=== PATIENT | male | born 2000 | race Caucasian/White ===

== ENCOUNTER 2025-03-18 13:48 | Outpatient (CLI) | payer OTHER, SELFPAY ==
--- NOTE | ~2025-03-18 | MR_ITS ---
EXAMINATION: MR brain/brain stem wo/w con DATE: 03/18/2025 14:38 INDICATION: Other visual disturbances. TECHNIQUE: Magnetic resonance imaging (MRI) of the brain and brainstem was performed without and with 19 mL MultiHance intravenous contrast. COMPARISON: None. FINDINGS: There is no intracranial hemorrhage, acute infarction, or abnormal intracranial mass lesion. The ventricles are normal in size. There is mucosal thickening in the paranasal sinuses. The orbits are normal. The mastoid air cells are normal. IMPRESSION: 1. Normal brain. Reviewed, dictated and finalized at location E. IMPRESSION: 1. Normal brain.
--- OUTSIDE RECORDS SUMMARY | 2025-03-18 13:50 | XMS_ITS | Patient Health Record ---
Author Organization [facility] As [facility] Address [address] [place] [address] Care Team Providers Care Air Hose Coupler Name Role Phone Marisela Gramajo Unavailable [phone] Reason For Referral No Information Medications Medication SIG (Take, Route, Frequency, Duration) Notes Start Date End Date Status Sertraline HCl 50 MG Tablet Oral 12/27/2022 Active Auvelity 45-105 MG Tablet Extended Release Oral *Reorder from [employer] for eRx and Interaction Alerts* 12/27/2022 Active Sertraline HCl 25 MG Tablet Oral 12/27/2022 Active Immunizations Vaccine Route Administration Date Status Comme nts Pfizer Biontech Covid-19 Vac cine 2nd dose Unknown 09/21/2020 Administered Pfizer Biontech Covid-19 Vac cine 2nd dose Unknown 10/12/2020 Administered Social History Social History Additional Details Category Social Info Options Details Migrated Social History Migrated Social History Alcohol Intake: None 09/06/2021,Tobacco Years: Never smoker 09/06/2021 Plan Of Treatment No Information Insurance Providers Payer Name Payer Address Payer Phone Subscriber Number Group Number Insured Name Patient Relationship to Insured Coverage Start Date Coverage End Date [facility] [address] [address] [place] [address] [phone] [id number] BUSHRA BARTON Child - Insured has Financial Responsibility
--- OUTSIDE RECORDS SUMMARY | 2025-03-18 13:51 | XMS_ITS | Data Portability ---
Author Organization [facility], Main Office Address [address] [place] [address] Assessment No assessment recorded. Plan of Treatment Reminders Order Date Submit Date Provider Last Modified By Organization Details Last Modified Time Details Appointments None recorded. Lab vitamin B12 + folate, serum or blood 2024 025 [email or web address] 4 [facility] (Lab), [address] [place], [address], 5 12:39:18 unlisted lab - vit D, [id number] 29 2024 025 [email or web address] 4 [facility] (Lab), [address] [place], [address], 5 12:39:18 magnesium, serum or plasma 2024 025 [email or web address] 4 [facility] (Lab), [address] [place], [address], 5 12:39:18 CBC w/ auto diff 2024 025 [email or web address] 4 [facility] (Lab), [address] [place], [address], 5 12:39:16 CMP, serum or plasma 2024 025 [email or web address] 4 [facility] (Lab), [address] [place], [address], 5 12:39:16 lipid panel, serum 2024 025 [email or web address] [id number] 4 [facility] (Lab), [address] [place], [address], 5 12:39:16 glycohemog lobin, total, blood [address] [place] [id number] 4 [facility] (Lab), [address] [place], [address], 5 12:39:17 T4, free, serum [address] [place] [id number] 4 [facility] (Lab), [address] [place], [address], 5 12:39:17 CK (creatine kinase), total, serum [address] [place] [address] 4 [facility] (Lab), [address] [place], [address], 5 12:39:17 TSH, serum or plasma [address] [place] [address] 4 [facility] (Lab), [address] [place], [address], 5 12:39:17 Referral None recorded. Procedures None recorded. Surgeries None recorded. Imaging None recorded. Medication Orders None recorded. Patient TargetsNo targets recorded. Patient Instructions Encounter Date Encounter Id Patient Instructions Last Modified By Organization Details Last Modified Time 09/09/2024 [id number] he did not want a muscle relaxant , the spasms go away instantly [email or web address] Not available 09/17/2024 17:24:15 Reason for Referral None Reported. Results Created Date Observation Date Name Description Value Unit Range Abnormal Flag Note LastModifiedBy Organization Detail LastModifiedTime Result Notes None recorded. Problems Name Problem SNOMED Code Status Onset Date Resolution Date Notes Provider Name and Address Organization Details Recorded Time Adult health examination Active 2024 DARLENE Davis [address], [place], [address], [facility] [employer] [facility] [employer] [facility] 5 10:59:14 Spasm 90059377 Active 2024 DARLENE Davis [address], [address], [place], [address], [facility] [employer] [facility] [employer] [facility] 5 11:00:13 Hyperlipidemia 15733653 Active 2024 DARLENE Davis [address], [address], [place], [address], [facility] [employer] [facility] 5 13:45:42 Problem Notes None recorded. Medical Equipment None Reported. Medications Name Sig Start Date Stop Date Status Note LastModified by Organization Details LastModified Time ezetimibe 10 mg tablet Take 1 tablet every day by oral route for 30 days. 025 active Not Available Not Available Not Avai lable Vitals Date Recorded Body weight Body temperature Respiratory rate Heart rate Oxygen saturation Oxygen saturation in Arterial blood by Pulse oximetry Systolic And Diastolic Provider Name and Address Organization Details Last Updated DateTime 5 89185.4 g 97.4 [degF] 15 /min 74 /min 96 % 96 % 118/80 mm[Hg] Jeannineralf [place] [employer] [facility] 5 10:46:03 Social History None recorded. Functional Status None recorded. Mental Status None recorded. Family History Nothing Reported. Medical History No medical history recorded. Past Encounters Encounter ID Performer Location Encounter Start Date Encounter Closed Date Diagnosis/Indication Diagnosis SNOMED-CT Code Diagnosis ICD10 Code Diagnosis IMO Codes Diagnosis Note [id number] Osman Kapadia MD [facility] [address] [place] [address] 09/09/2024 10:25:19 09/09/2024 14:55:43 Adult health examination 502220033 Z00.00 Spasm 54374166 R25.2 Health Concerns Section Related Observation LastModified by Organization Detai ls LastModified Time None Recorded Concern Status LastModified by Organization Details LastModified Time None Recorded Advance Directives Directive None Recorded Payers Insurance Date Sequence Insurance Name Policy Number Policy Lopez Covered Member ID Lopez Member ID Guarantor Name 09/22/2024 1 R [id number] Narayan Marques [id number] Sj Marques 09/22/2024 2 R (POS) [id number] Sj Marques [id number] Sj Marques 09/22/[address] [facility] Sj Marques [id number] Sj Marques Notes Date Note Type Note Provider Name and Address Organization Details Recorded Time 09/09/2024 text/html ROS as noted in the HPI spasms 1 month brief all over ; pain in testicles off and on Edward DARLENE Bernal [address] [facility], [facility] [address], [place], [address], [place] [facility] 09/17/2024 17:25:04
== END 2025-03-18 13:49 | disposition home or self-care (01) ==
PROVIDERS: PCP Nurse Practitioner; Visit Provider Nurse Practitioner
DX: H53.8 Other visual disturbances (principal); R25.3 Fasciculation; Z82.0 Family history of epilepsy and other diseases of the nervous system
CPT/HCPCS: 70553; A9577